=== PATIENT | female | born 1980 | race Caucasian/White ===

== ENCOUNTER 2016-05-02 07:13 | Emergency (ER) | payer OTHER ==
[2016-05-02 07:51] LABS: BASO # 0.1 10_X3_uL (0.0-0.1); BASO % 0.7 % (0.1-1.2); EOS # 0.2 10_X3_uL (0.0-0.4); EOS % 2.7 % (0.7-5.8); GRAN # 4.2 10_X3_uL (1.6-6.1); GRAN % 52.1 % (34.0-71.1); HEMATOCRIT 41.9 % (34-45); HEMOGLOBIN 14.5 g/dL (11.2-15.7); LYMPH # 3.1 10_X3_uL (1.2-3.7); MEAN CORPUSCULAR HEMOGLOBIN 30.2 pg (27.0-33.0); MEAN CORPUSCULAR HGB CONC 34.6 g/dL (32.0-36.0); MEAN CORPUSCULAR VOLUME 87.3 fL (79-95); MONO # 0.4 10_X3_uL (0.2-0.9); MONO % 5.5 % (4.7-12.5); PLATELET COUNT 277 x10_3/uL (182-369); RED CELL DISTRIBUTION WIDTH 15.4 % (11.7-14.4)
[2016-05-02 08:00] LABS: ALKALINE PHOSPHATASE 319 U/L (50-136); ALT/SGPT 191 U/L (3.5-33.9); AST/SGOT 111 U/L (7.04-26.96); BLOOD UREA NITROGEN 14 mg/dL (7-18); CALCIUM 8.5 mg/dL (8.7-10.7); CARBON DIOXIDE 20 mmol/L (21-32); CREATINE KINASE 51 U/L (21-215); CREATININE 0.5 mg/dL (0.6-1.3); GLUCOSE,RANDOM 105 mg/dL (70-99); POTASSIUM 3.9 mmol/L (3.5-5.1); SODIUM 136 mmol/L (136-145); TOTAL PROTEIN 7.5 gm/dL (6.4-8.2)
== END 2016-05-02 09:21 | disposition home or self-care (01) ==
LOC: ER 07:13
PROVIDERS: Emergency Medicine
DX: J20.9 Acute bronchitis, unspecified (principal); R07.89 Other chest pain; F17.210 Nicotine dependence, cigarettes, uncomplicated
CPT/HCPCS: 36415; 71250; 80053; 81025; 82550; 82553; 85025; 93005; 99284-25

== ENCOUNTER 2016-05-05 18:34 | Emergency (ER) | payer OTHER ==
[2016-05-05 19:05] LABS: BASO % 0.5 % (0.1-1.2); EOS # 0.2 10_X3_uL (0.0-0.4); EOS % 1.8 % (0.7-5.8); GRAN # 4.7 10_X3_uL (1.6-6.1); GRAN % 56.9 % (34.0-71.1); HEMATOCRIT 46.4 % (34-45); HEMOGLOBIN 16.2 g/dL (11.2-15.7); LYMPH # 2.9 10_X3_uL (1.2-3.7); LYMPH % 35.1 % (19.3-51.7); MEAN CORPUSCULAR HEMOGLOBIN 30.3 pg (27.0-33.0); MEAN CORPUSCULAR HGB CONC 34.9 g/dL (32.0-36.0); MEAN CORPUSCULAR VOLUME 86.7 fL (79-95); MEAN PLATELET VOLUME 9.1 fl (7.5-11.5); MONO # 0.5 10_X3_uL (0.2-0.9); MONO % 5.7 % (4.7-12.5); PLATELET COUNT 164 x10_3/uL (182-369); RED BLOOD COUNT 5.35 x10_6/uL (3.9-5.2); RED CELL DISTRIBUTION WIDTH 15.7 % (11.7-14.4); WHITE BLOOD COUNT 8.3 x10_3/uL (4.0-10.0)
[2016-05-05 19:27] LABS: ALBUMIN 4.3 gm/dL (3.4-5.0); ALKALINE PHOSPHATASE 342 U/L (50-136); ALT/SGPT 168 U/L (3.5-33.9); AST/SGOT 89 U/L (7.04-26.96); BILIRUBIN,TOTAL 0.45 mg/dL (0.0-1.0); BLOOD UREA NITROGEN 11 mg/dL (7-18); CARBON DIOXIDE 17 mmol/L (21-32); CREATINE KINASE 99 U/L (21-215); CREATININE 0.5 mg/dL (0.6-1.3); GLUCOSE,RANDOM 86 mg/dL (70-99); POTASSIUM 4.2 mmol/L (3.5-5.1); SODIUM 135 mmol/L (136-145); TOTAL PROTEIN 8.3 gm/dL (6.4-8.2)
== END 2016-05-05 19:26 | disposition short-term general hospital (02) ==
LOC: ER 18:34
PROVIDERS: Internal Medicine
DX: I21.4 Non-ST elevation (NSTEMI) myocardial infarction (principal); R11.2 Nausea with vomiting, unspecified; R06.02 Shortness of breath; F17.200 Nicotine dependence, unspecified, uncomplicated; Z82.49 Family history of ischemic heart disease and other diseases of the circulatory system
CPT/HCPCS: 36415; 71010; 80053; 82550; 82553; 85025; 93005; 96365; 96375; 99070; 99285-25